=== PATIENT | female | born 1960 | race Caucasian/White ===

== ENCOUNTER 2021-04-26 09:07 | Inpatient (IN) | payer OTHER ==
[~2021-04-26] VITALS: Ht 175.3 cm; Wt 81.8 kg
[2021-04-26 09:19] LABS: BASOPHILS ABSOLUTE AUTO 0.06 K/mm3 (0.00-0.23); BASOPHILS PERCENT AUTO 1 % (0-2); EOSINOPHILS ABSOLUTE AUTO 0.03 K/mm3 (0.00-0.68); EOSINOPHILS PERCENT AUTO 0 % (0-6); Hematocrit 43.5 % (33.0-51.0); Hemoglobin 14.7 g/dL (11.5-16.0); IMMATURE GRAN ABSOLUTE AUTO 0.05 K/mm3 (0.00-0.10); IMMATURE GRAN PERCENT AUTO 0 % (0-1); LYMPHOCYTES ABSOLUTE AUTO 2.05 K/mm3 (0.84-5.20); LYMPHOCYTES PERCENT AUTO 17 % (21-46); MONOCYTES ABSOLUTE AUTO 0.74 K/mm3 (0.16-1.47); MONOCYTES PERCENT AUTO 6 % (4-13); Mean Corpuscular HGB 29.6 pg (26.0-34.0); Mean Corpuscular HGB Conc 33.8 g/dL (31.5-36.5); Mean Corpuscular Volume 88 fL (80-100); Mean Platelet Volume 10.8 fL (9.1-12.4); NEUTROPHILS ABSOLUTE AUTO 9.21 K/mm3 (1.96-9.15); NEUTROPHILS PERCENT AUTO 76 % (41-73); Platelet Count 197 K/mm3 (150-400); RDW Coefficient Variation 12.2 % (11.7-14.2); RDW Standard Deviation 39.4 fL (35.1-46.3); Red Blood Cell Count 4.96 M/mm3 (3.80-5.20); White Blood Cell Count 12.14 K/mm3 (4.00-11.30)
[2021-04-26] MEDS ORDERED: METF500 PO (09:20)
[2021-04-26 09:39] LABS: Alanine Aminotransfer (ALT/SGP 36 U/L (12-78); Albumin, Blood 3.4 g/dL (3.4-5.0); Albumin/Globulin Ratio 0.9 (0.8-1.8); Alk Phos 102 U/L (50-136); Anion Gap 9 mmol/L (6-16); Aspartate Aminotrans (AST/SGOT 17 U/L (12-37); Bilirubin, Total 0.9 mg/dL (0.1-1.0); Blood Urea Nitrogen 21 mg/dL (8-24); Bun/Creatinine Ratio 20.4 (12.0-20.0); CO2, Blood 26 mmol/L (21-32); Chloride, Blood 102 mmol/L (98-108); Creatinine, Blood 1.03 mg/dL (0.40-1.00); Globulin, Blood 3.8 g/dL (2.2-4.0); Glomerular Filtration Rate 55 (60-); Glucose, Blood 248 mg/dL (70-99); Potassium, Blood 4.4 mmol/L (3.5-5.5); Sodium, Blood 137 mmol/L (136-145); Total Protein, Blood 7.2 g/dL (6.4-8.2); Troponin I <0.015 ng/mL (0.000-0.040)
[2021-04-26 11:00] LABS: Influenza A, PCR NEGATIVE (NEGATIVE); Influenza B, PCR NEGATIVE (NEGATIVE); Resp Syncytial Virus, PCR NEGATIVE (NEGATIVE); SARS-Cov-2 (COVID-19) PCR, MMC NEGATIVE (NEGATIVE)
[2021-04-26 11:45] LABS: U Amphetamine Screen Not Detected; U Barbituate Screen Not Detected; U Benzodiazapine Screen Not Detected; U Buprenorphine Screen Not Detected; U Cannabinoids Screen Not Detected; U Cocaine Screen Not Detected; U Methadone Screen Not Detected; U Methamphetamine Screen Not Detected; U Opiates Screen Not Detected; U Oxycodone Screen Not Detected; U Phencyclidine Screen Not Detected; U Propoxyphene Screen Not Detected
[2021-04-26] MEDS ORDERED: AMOCLA875 PO (13:10)
[2021-04-26] MEDS ORDERED: LISI20 PO (13:10)
[2021-04-26] MEDS ORDERED: MECL25 (13:10)
[2021-04-26] MEDS ORDERED: GLIP10ER (13:11)
[2021-04-26] MEDS ORDERED: KRILL OIL 5001 EACH PO (13:12)
--- NOTE | 2021-04-26 15:28 | NUR ---
Echocardiogram completed.
--- NOTE | 2021-04-26 18:36 | NUR ---
SHIFT SUMMARY PT A&OX4, VSS/TELE ASHLEY PO, DENIES N&V, VOIDING WELL, DENIES SOB/CP/PAIN. WILL REPORT TO ONCOMING NOC RN.
--- NOTE | 2021-04-27 01:05 | NUR ---
HR DROPPING TO 36 WHILE PT SLEEPING. PT ASYMPTOMATIC. WHEN WOKEN UP HR WILL INCREASE BACK TO 40'S WHICH IS PT BASELINE. DR. CLARKE NOTIFIED OF DROP IN HR. PLAN TO CTM WITH TELE IN PLACE.
--- NOTE | 2021-04-27 04:59 | NUR ---
SHIFT SUMMARY: PT A&O X4. REPORTS FEELING LIGHTHEADED AND DIZZY WHILE EYES ARE OPEN. REPORTS N/T TO LEFT HAND. STRENGTH EQUAL BILATERALLY. PT OUT OF BED ONCE TO BATHROOM. PT UNSTEADY ON FEET. HR IN 40'S WHILE AWAKE AND DROPPING TO 36 WHILE SLEEPING. PROVIDER AWARE (SEE OTHER NOTE). ALL OTHER VS WNL. PLAN FOR PT/OT AND ST TODAY.
[2021-04-27 05:10] LABS: Hematocrit 39.2 % (33.0-51.0); Hemoglobin 13.5 g/dL (11.5-16.0); Mean Corpuscular HGB 29.9 pg (26.0-34.0); Mean Corpuscular HGB Conc 34.4 g/dL (31.5-36.5); Mean Corpuscular Volume 87 fL (80-100); Mean Platelet Volume 10.8 fL (9.1-12.4); Platelet Count 173 K/mm3 (150-400); RDW Coefficient Variation 12.1 % (11.7-14.2); RDW Standard Deviation 38.6 fL (35.1-46.3); Red Blood Cell Count 4.52 M/mm3 (3.80-5.20); White Blood Cell Count 9.66 K/mm3 (4.00-11.30)
[2021-04-27 05:58] LABS: Anion Gap 11 mmol/L (6-16); Blood Urea Nitrogen 17 mg/dL (8-24); Bun/Creatinine Ratio 21.9 (12.0-20.0); CHOL/HDL RATIO 3.6; CO2, Blood 22 mmol/L (21-32); Calcium, Blood 8.6 mg/dL (8.5-10.1); Chloride, Blood 104 mmol/L (98-108); Cholesterol 142 mg/dL (50-200); Creatinine, Blood 0.78 mg/dL (0.40-1.00); Glomerular Filtration Rate >60 (60-); Glucose, Blood 228 mg/dL (70-99); HDL Cholesterol 40 mg/dL (>39); LDL/HDL RATIO 1.9; Low Density Lipoprotein Chol 75 mg/dL (0-110); Potassium, Blood 4.2 mmol/L (3.5-5.5); Sodium, Blood 137 mmol/L (136-145); Triglycerides 135 mg/dL (30-160); Very Low Density Lipoprot Chol 27 mg/dL (6-32)
--- NOTE | 2021-04-27 16:25 | NUR ---
SHIFT SUMMARY PT A&OX4/VSS/RA/TELE SB PACS @ 55 BPM, ASHLEY PO REG DIET, VOIDING WELL, DENIES CP/SOB, REPORTS N&T ON LEFT SIDE, AMB W/HEMIWALKER/GB/SBA, UP TO CHAIR T/O SHIFT, SHOWERED TODAY. HEMIWALKER SCRIPT FAXED TO [facility] - SIGN[facility] [id number] CIGARETTE TESTER ON MONDAY. ORIGINAL HEMIWALKER & CPAP SCRIPTS GIVEN TO JONATHON. PT HAS A PCP DR SPAULDING NEXT MONDAY, THE PCP WILL THEN SEND A REFERRAL FOR A SLEEP STUDY SO THE PT CAN GET A NEW CPAP.
--- NOTE | 2021-04-28 03:16 | NUR ---
SHIFT SUMMARY A/OX4. L SIDE NUMBNESS, BUT PT STATES IT IS IMPROVING. ON TELE MONITOR. HR SINUS VAUGHN (40S-50S), PT REPORTS NO SO OR CHEST PAIN AT THIS TIME. USING WALKER TO AMBULATE. VOIDING WELL. WORKED WITH PT AND OT TODAY. SHOWERED THIS AM. VSS. TOLERATING ADA DIET. WILL REPORT TO ONCOMING RN.
[2021-04-28] MEDS ORDERED: LISI5 PO (12:03)
[2021-04-28] MEDS ORDERED: ASPI81CH PO (12:03)
[2021-04-28] MEDS ORDERED: ATOR80 PO (12:04)
[2021-04-28] MEDS ORDERED: BASAGLAR K100 UNIT/6 SC (12:05)
--- NOTE | 2021-04-28 17:45 | NUR ---
DISCHARGE PT PROVIDED WITH WRITTEN AND VERBAL DISCHARGE INSTRUCTIONS, HE REPORTED UNDERSTANDING. PT AND HIS S/O WERE EDUCATED ABOUT LANTUS AND ABOUT USING THE INSULIN PEN. MEDICATION ORDERS FAXED TO [facility]. PRESCRIPTION PROVIDED FOR LANCETS, GLUCOMETER, AND TEST STRIPS. PT VERBALIZED UNDERSTANDING OF INSTRUCTIONS. FOLLOW-UP APPOINTMENT ARRANGED WITH [facility] FOLLOW UP TOMORROW AND NEW PT APPOINTMENT ON MAY 05. PT WAS EDUCATED THAT HE SHOULD DISCUSS DIABETIC MANAGEMENT, NEED FOR CPAP AND HOME HEALTH SOME OF THE THINGS THAT NEEDED ADDRESSED DURING HE APPOINTMENT TOMORROW. PT'S S/O WAS PRESENT FOR ALL EDUCATION AND ALSO VERBALIZED UNDERSTANDING. PT ESCORTED OUT IN W/C.
== END 2021-04-28 17:28 | disposition home or self-care (01) | DRG 66 ==
LOC: ER 09:07 → ERHOLD 11:59 → SURS 11:59 → EDSEX 04-28 17:28 → SURS 04-28 17:28
PROVIDERS: Emergency Medicine; Nurse Practitioner Acute Care; ADMIT Internal Medicine
DX: I63.9 Cerebral infarction, unspecified (principal); Z20.822 Contact with and (suspected) exposure to COVID-19; R00.1 Bradycardia, unspecified; E11.9 Type 2 diabetes mellitus without complications; I10 Essential (primary) hypertension; F17.210 Nicotine dependence, cigarettes, uncomplicated; I48.91 Unspecified atrial fibrillation; G83.14 Monoplegia of lower limb affecting left nondominant side; G47.33 Obstructive sleep apnea (adult) (pediatric); Z91.19 Patient's noncompliance with other medical treatment and regimen; Z98.890 Other specified postprocedural states; Z90.49 Acquired absence of other specified parts of digestive tract; Z90.89 Acquired absence of other organs; Z79.84 Long term (current) use of oral hypoglycemic drugs; Z79.899 Other long term (current) drug therapy
CPT/HCPCS: 0241U; 36415; 70450; 71045; 80048; 80053; 80061; 82947; 83036; 83735; 83880; 84443; 84484; 85025; 85027; 92610; 93005; 93010; 93306; 93880; 94660; 94762; 97112; 97116; 97162; 97166; 99285-25; A9270; J1650; J1815; J2405; J2765; J7030; J7120

== ENCOUNTER 2021-05-19 08:35 | Emergency (ER) | payer OTHER ==
[~2021-05-19] VITALS: Ht 175.3 cm; Wt 87.5 kg
[~2021-05-19 08:35] MED LIST: AMOCLA875 PO; ASPI81CH PO; ATOR80 PO; BASAGLAR K100 UNIT/6 SC; GLIP10ER; KRILL OIL 5001 EACH PO; LISI20 PO; LISI5 PO; MECL25; METF500 PO
[2021-05-19] MEDS ORDERED: METF500C PO (08:56)
[2021-05-19] MEDS ORDERED: CYCL10 PO (08:58)
[2021-05-19 10:09] LABS: BASOPHILS ABSOLUTE AUTO 0.09 K/mm3 (0.00-0.23); BASOPHILS PERCENT AUTO 1 % (0-2); EOSINOPHILS ABSOLUTE AUTO 0.29 K/mm3 (0.00-0.68); EOSINOPHILS PERCENT AUTO 3 % (0-6); Hemoglobin 15.8 g/dL (13.5-17.5); IMMATURE GRAN PERCENT AUTO 1 % (0-1); LYMPHOCYTES ABSOLUTE AUTO 2.58 K/mm3 (0.84-5.20); LYMPHOCYTES PERCENT AUTO 25 % (21-46); MONOCYTES ABSOLUTE AUTO 0.84 K/mm3 (0.16-1.47); MONOCYTES PERCENT AUTO 8 % (4-13); Mean Corpuscular HGB 29.5 pg (26.0-34.0); Mean Corpuscular HGB Conc 34.3 g/dL (31.5-36.5); Mean Corpuscular Volume 86 fL (80-100); Mean Platelet Volume 9.7 fL (9.1-12.4); NEUTROPHILS ABSOLUTE AUTO 6.57 K/mm3 (1.96-9.15); NEUTROPHILS PERCENT AUTO 63 % (41-73); Platelet Count 212 K/mm3 (150-400); Red Blood Cell Count 5.35 M/mm3 (4.30-5.90); White Blood Cell Count 10.47 K/mm3 (4.00-11.30)
[2021-05-19 10:21] LABS: Source, Urine Clean Catch
[2021-05-19 10:32] LABS: Alanine Aminotransfer (ALT/SGP 31 U/L (12-78); Albumin, Blood 3.1 g/dL (3.4-5.0); Albumin/Globulin Ratio 0.8 (0.8-1.8); Alk Phos 177 U/L (50-136); Anion Gap 7 mmol/L (6-16); Aspartate Aminotrans (AST/SGOT 28 U/L (12-37); Bilirubin, Total 0.7 mg/dL (0.1-1.0); Blood Urea Nitrogen 16 mg/dL (8-24); Bun/Creatinine Ratio 24.6 (12.0-20.0); CO2, Blood 24 mmol/L (21-32); Calcium, Blood 8.5 mg/dL (8.5-10.1); Chloride, Blood 103 mmol/L (98-108); Creatinine, Blood 0.65 mg/dL (0.60-1.20); Globulin, Blood 3.9 g/dL (2.2-4.0); Glomerular Filtration Rate >60 (60-); Glucose, Blood 212 mg/dL (70-99); Potassium, Blood 4.6 mmol/L (3.5-5.5); Sodium, Blood 134 mmol/L (136-145)
[2021-05-19 10:42] LABS: Appearance, Urine Clear (Clear); Bilirubin, Urine Neg (Neg); Blood, Urine Neg (Neg); Color, Urine Yellow (P-Yellow); Glucose Qualitative, Urine 1+ (Neg); Ketones, Urine Neg (Neg); Leukocyte Esterase, Urine Neg (Neg); Nitrite, Urine Neg (Neg); Protein, Urine Neg (Neg); Urobilinogen, Urine 1+ (Normal)
== END 2021-05-19 12:37 | disposition home or self-care (01) ==
LOC: ER 08:35
PROVIDERS: Emergency Medicine
DX: K59.00 Constipation, unspecified (principal); E11.9 Type 2 diabetes mellitus without complications; Z79.4 Long term (current) use of insulin; Z87.891 Personal history of nicotine dependence
CPT/HCPCS: 36415; 74177; 80053; 81003; 83690; 85025; A9270; Q9967

== ENCOUNTER 2021-09-10 08:09 | Day surgery (SDC) | payer OTHER ==
[~2021-09-10] VITALS: Ht 175.3 cm; Wt 94.0 kg
[~2021-09-10 08:09] MED LIST changes: +CYCL10 PO; +METF500C PO
[2021-09-10] MEDS ORDERED: OMEP20ER (08:50)
== END 2021-09-10 10:20 | disposition home or self-care (01) ==
LOC: ORSCSDS 08:09
PROVIDERS: Internal Medicine Gastroenterology
PROC: 0DBN8ZX Excision of Sigmoid Colon, Via Natural or Artificial Opening Endoscopic, Diagnostic (ICD-10-PCS; principal; 2021-09-10 09:30)
PROC: 0DBM8ZX Excision of Descending Colon, Via Natural or Artificial Opening Endoscopic, Diagnostic (ICD-10-PCS; principal; 2021-09-10 09:30)
DX: Z12.11 Encounter for screening for malignant neoplasm of colon (principal); Z80.0 Family history of malignant neoplasm of digestive organs; D12.4 Benign neoplasm of descending colon; D12.5 Benign neoplasm of sigmoid colon; K64.4 Residual hemorrhoidal skin tags; I10 Essential (primary) hypertension; E11.9 Type 2 diabetes mellitus without complications; Z86.73 Personal history of transient ischemic attack (TIA), and cerebral infarction without residual deficits; Z79.4 Long term (current) use of insulin; Z79.899 Other long term (current) drug therapy
CPT/HCPCS: 82947; 88305; J2704; J7120

== ENCOUNTER 2021-12-16 09:43 | Day surgery (SDC) | payer OTHER ==
[~2021-12-16] VITALS: Ht 175.3 cm; Wt 98.8 kg
[~2021-12-16 09:43] MED LIST changes: +OMEP20ER
== END 2021-12-16 12:33 | disposition home or self-care (01) ==
LOC: ORSCSDS 09:43
PROVIDERS: Internal Medicine Gastroenterology
PROC: 0DB98ZX Excision of Duodenum, Via Natural or Artificial Opening Endoscopic, Diagnostic (ICD-10-PCS; principal; 2021-12-16 11:15)
PROC: 0DB68ZX Excision of Stomach, Via Natural or Artificial Opening Endoscopic, Diagnostic (ICD-10-PCS; principal; 2021-12-16 11:15)
DX: R14.0 Abdominal distension (gaseous) (principal); R19.4 Change in bowel habit; Z86.010 Personal history of colon polyps; Z80.0 Family history of malignant neoplasm of digestive organs; K44.9 Diaphragmatic hernia without obstruction or gangrene; K31.7 Polyp of stomach and duodenum; E11.9 Type 2 diabetes mellitus without complications; Q43.8 Other specified congenital malformations of intestine; Z86.73 Personal history of transient ischemic attack (TIA), and cerebral infarction without residual deficits; Z87.891 Personal history of nicotine dependence; Z79.4 Long term (current) use of insulin; Z79.82 Long term (current) use of aspirin; Z79.899 Other long term (current) drug therapy
CPT/HCPCS: 82947; 88305; 88342; J2704; J7120

== ENCOUNTER → 2024-01-19 | Outpatient (CLI) | payer MEDICARE, OTHER ==
[2024-01-19 16:43] LABS: Creatinine, Urine Random 63.1 mg/dL (27.00-270.00)
[2024-01-19 16:45] LABS: Microalb/Creat Ratio UR, Rand 10.555 mg/g (0.000-30.000); Microalbumin, Random Urine 6.66 mg/L (0.000-20.000)
== END ==
LOC: LAB 13:58 → LAB SHORT 13:58
PROVIDERS: Student in an Organized Health Care Education/Training Program
DX: E11.9 Type 2 diabetes mellitus without complications (principal)
CPT/HCPCS: 82043; 82570

== ENCOUNTER → 2024-08-28 | Outpatient (CLI) | payer MEDICARE ==
[2024-08-28 16:49] LABS: BASOPHILS PERCENT AUTO 1 % (0-2); EOSINOPHILS ABSOLUTE AUTO 0.37 K/mm3 (0.00-0.68); EOSINOPHILS PERCENT AUTO 3 % (0-6); Hematocrit 44.5 % (37.0-53.0); Hemoglobin 15.6 g/dL (13.5-17.5); IMMATURE GRAN ABSOLUTE AUTO 0.04 K/mm3 (0.00-0.10); IMMATURE GRAN PERCENT AUTO 0 % (0-1); LYMPHOCYTES ABSOLUTE AUTO 3.13 K/mm3 (0.84-5.20); LYMPHOCYTES PERCENT AUTO 29 % (21-46); MONOCYTES ABSOLUTE AUTO 0.84 K/mm3 (0.16-1.47); MONOCYTES PERCENT AUTO 8 % (4-13); Mean Corpuscular HGB 30.8 pg (26.0-34.0); Mean Corpuscular HGB Conc 35.1 g/dL (31.5-36.5); Mean Corpuscular Volume 88 fL (80-100); NEUTROPHILS ABSOLUTE AUTO 6.38 K/mm3 (1.96-9.15); NEUTROPHILS PERCENT AUTO 59 % (41-73); Platelet Count 235 K/mm3 (150-400); RDW Coefficient Variation 13.1 % (11.7-14.2); Red Blood Cell Count 5.07 M/mm3 (4.30-5.90); White Blood Cell Count 10.86 K/mm3 (4.00-11.30)
[2024-08-28 17:08] LABS: Albumin, Blood 4.1 g/dL (3.4-5.0); Albumin/Globulin Ratio 1.2 (0.8-1.8); Bilirubin, Total 0.9 mg/dL (0.1-1.0); Bun/Creatinine Ratio 20.7 (12.0-20.0); Calcium, Blood 9.5 mg/dL (8.5-10.1); Creatinine, Blood 0.87 mg/dL (0.60-1.20); Globulin, Blood 3.3 g/dL (2.2-4.0); Potassium, Blood 4.4 mmol/L (3.5-5.5); Thyroid Stimulating Hormone 2.99 uIU/mL (0.360-4.800); Total Protein, Blood 7.4 g/dL (6.4-8.2)
[2024-08-31 09:42] LABS: TESTOSTERONE, FREE BY DIALYSIS 49.2 pg/mL (47.0-244.0)
== END ==
LOC: LAB SHORT 13:52 → LAB 13:52
PROVIDERS: Student in an Organized Health Care Education/Training Program
DX: E11.65 Type 2 diabetes mellitus with hyperglycemia (principal); R53.82 Chronic fatigue, unspecified; Z79.4 Long term (current) use of insulin
CPT/HCPCS: 80053; 84402; 84403; 84443; 85025